=== PATIENT | male | born 1980 | race Caucasian/White ===

== ENCOUNTER 2016-03-13 13:21 | Emergency (ER) | payer MEDICAID ==
[~2016-03-13] VITALS: Ht 180.3 cm; Wt 70.3 kg
[2016-03-13 14:34] VITALS: BP 136/82
== END 2016-03-13 15:13 | disposition home or self-care (01) ==
LOC: ER 13:24
DX: H10.33 Unspecified acute conjunctivitis, bilateral (principal); F17.210 Nicotine dependence, cigarettes, uncomplicated; Z88.1 Allergy status to other antibiotic agents

== ENCOUNTER 2018-08-24 18:17 | Emergency (ER) | payer SELFPAY ==
[~2018-08-24] VITALS: Ht 180.3 cm; Wt 70.3 kg
[2018-08-24 18:28] VITALS: BP 117/76
== END 2018-08-24 20:01 | disposition left against medical advice (07) ==
LOC: ER 18:24
DX: M79.601 Pain in right arm (principal); Z53.21 Procedure and treatment not carried out due to patient leaving prior to being seen by health care provider

== ENCOUNTER 2022-05-17 12:59 | Emergency (ER) | payer MEDICAID ==
[~2022-05-17] VITALS: Ht 177.8 cm; Wt 72.7 kg
[2022-05-17 13:10] VITALS: BP 116/82
[2022-05-17] MEDS ORDERED: BUSP7.5T8 PO (14:20)
[2022-05-17] MEDS ORDERED: LIDO5PAD8 EX (14:20)
[2022-05-17] MEDS ORDERED: LACT10SO70 PO (14:20)
== END 2022-05-17 14:34 | disposition home or self-care (01) ==
LOC: ER 12:59
DX: F41.9 Anxiety disorder, unspecified (principal); F17.210 Nicotine dependence, cigarettes, uncomplicated; Z86.59 Personal history of other mental and behavioral disorders; Z76.0 Encounter for issue of repeat prescription; Z88.1 Allergy status to other antibiotic agents

== ENCOUNTER 2022-06-22 16:54 | Inpatient (IN) | payer MEDICAID ==
[~2022-06-22] VITALS: Ht 180.3 cm; Wt 70.4 kg
[~2022-06-22 16:54] MED LIST: BUSP7.5T8 PO; LACT10SO70 PO; LIDO5PAD8 EX
[2022-06-22 18:07] LABS: Basophils # (auto) 0 10 ^3/uL (0-0.2); Basophils % (auto) 0.3 % (0.0-2.0); Eosinophils # (auto) 0.2 10 ^3/uL (0-0.8); Eosinophils % (auto) 2.2 % (0.0-7.0); Hematocrit 45.9 % (41.0-53.0); Hemoglobin 14.8 g/dL (13.5-17.5); Lymphocytes # (auto) 2.8 10 ^3/uL (0.4-5.4); Lymphocytes % (auto) 33.9 % (10.0-50.0); Mean Corpuscular Hemoglobin 28.5 pg (28.0-32.0); Mean Corpuscular Hgb Conc. 32.3 g/dL (32.0-36.0); Monocytes % (auto) 12.4 % (0.0-12.0); Neutrophils # (auto) 4.3 10 ^3/uL (1.6-8.6); Neutrophils % (auto) 51.2 % (37.0-80.0); Nucleated Red Blood Cells % 0.1 %; Red Blood Cells 5.21 10^6/uL (4.5-5.90); Red Cell Distribution Width 14.3 % (11.8-14.3); White Blood Cell 8.3 10^3/uL (4.4-10.8)
[2022-06-22 18:27] LABS: Albumin 4.1 g/dL (3.4-5.0); Potassium 4.6 mmol/L (3.5-5.1)
[2022-06-22 18:30] LABS: BUN/Creatinine Ratio 17.4 (10.0-20.0); Bilirubin, Total 0.2 mg/dL (0.2-1.0); Total Protein 8.6 g/dL (6.4-8.2)
[2022-06-22] MEDS ORDERED: ACETAMINOPHEN 325 MG TAB PO PRN (21:30)
[2022-06-22] MEDS ORDERED: DOCUSATE SOD 100 MG CAP PO PRN (21:30)
[2022-06-22] MEDS ORDERED: HYDROcodone-ACET 5/325MG TAB PO PRN (21:30)
[2022-06-22] MEDS ORDERED: SODIUM CHLORIDE 0.9% 1,000 ML IV SCH (21:30)
[2022-06-22] MEDS ORDERED: ONDANSETRON HCL 4 MG/2 ML VIAL IV PRN (21:30)
[2022-06-22] MEDS ORDERED: ATORVASTATIN 20 MG TAB PO SCH (22:00)
[2022-06-23] MEDS ORDERED: NITROGLYCERIN 0.4 MG SL TAB SL PRN
[2022-06-23] MEDS ORDERED: MORPHINE SULFATE INJ 2 MG/ml SYRG IV PRN
[2022-06-23 01:00] VITALS: BP 104/63
[2022-06-23 06:37] LABS: Basophils # (auto) 0 10 ^3/uL (0-0.2); Basophils % (auto) 0.4 % (0.0-2.0); Eosinophils # (auto) 0.2 10 ^3/uL (0-0.8); Eosinophils % (auto) 3.1 % (0.0-7.0); Hematocrit 44.7 % (41.0-53.0); Hemoglobin 15.3 g/dL (13.5-17.5); Lymphocytes # (auto) 2.8 10 ^3/uL (0.4-5.4); Lymphocytes % (auto) 36.8 % (10.0-50.0); Mean Corpuscular Hemoglobin 29.7 pg (28.0-32.0); Mean Corpuscular Hgb Conc. 34.1 g/dL (32.0-36.0); Mean Corpuscular Volume 87.1 fL (80.0-100.0); Monocytes # (auto) 0.9 10 ^3/uL (0-1.3); Monocytes % (auto) 11.1 % (0.0-12.0); Neutrophils # (auto) 3.7 10 ^3/uL (1.6-8.6); Neutrophils % (auto) 48.6 % (37.0-80.0); Nucleated Red Blood Cells % 0.2 %; Red Blood Cells 5.14 10^6/uL (4.5-5.90); Red Cell Distribution Width 13.8 % (11.8-14.3); White Blood Cell 7.7 10^3/uL (4.4-10.8)
[2022-06-23 06:57] LABS: Potassium 3.7 mmol/L (3.5-5.1)
[2022-06-23 07:08] LABS: Albumin 3.8 g/dL (3.4-5.0); BUN/Creatinine Ratio 15.3 (10.0-20.0); Bilirubin, Total 0.3 mg/dL (0.2-1.0); Calcium 9.2 mg/dL (8.5-10.1)
[2022-06-23] MEDS ORDERED: ASPirin 81 mg TAB PO SCH (10:00)
== END 2022-06-23 06:55 | disposition left against medical advice (07) | DRG 82 ==
LOC: ER 16:54 → TELE 23:48
PROVIDERS: ADMIT Nurse Practitioner Family; ATTEND Nurse Practitioner Family
DX: H53.2 Diplopia (principal); R47.01 Aphasia; F41.9 Anxiety disorder, unspecified; Z53.29 Procedure and treatment not carried out because of patient's decision for other reasons; F17.210 Nicotine dependence, cigarettes, uncomplicated; R26.81 Unsteadiness on feet; J45.909 Unspecified asthma, uncomplicated; Z87.820 Personal history of traumatic brain injury; Z88.1 Allergy status to other antibiotic agents
CPT/HCPCS: 36415; 70450; 71045; 80053; 84484; 85025; G0378

== ENCOUNTER → 2023-11-11 | Day surgery (SDC) | payer MEDICAID ==
[2023-11-07 12:53] LABS: Urine Bacteria None Seen /hpf (None Seen)
[2023-11-07 13:07] LABS: Basophils # (auto) 0 10 ^3/uL (0-0.2); Basophils % (auto) 0.2 % (0.0-2.0); Eosinophils # (auto) 0.1 10 ^3/uL (0-0.8); Eosinophils % (auto) 1.3 % (0.0-7.0); Hematocrit 46.1 % (41.0-53.0); Hemoglobin 15.8 g/dL (13.5-17.5); Lymphocytes # (auto) 3.5 10 ^3/uL (0.4-5.4); Lymphocytes % (auto) 40.1 % (10.0-50.0); Mean Corpuscular Hemoglobin 31.9 pg (28.0-32.0); Mean Corpuscular Hgb Conc. 34.3 g/dL (32.0-36.0); Monocytes # (auto) 0.7 10 ^3/uL (0-1.3); Neutrophils # (auto) 4.3 10 ^3/uL (1.6-8.6); Neutrophils % (auto) 50.4 % (37.0-80.0); Platelet Count (auto) 182 10^3/uL (140-450); Red Blood Cells 4.95 10^6/uL (4.5-5.90); White Blood Cell 8.6 10^3/uL (4.4-10.8)
[2023-11-07 13:22] LABS: INR 1.04 (0.9-1.15); Partial Thromboplastin Time 28.2 SEC (24.5-34.5)
[2023-11-07 13:25] LABS: Urine Blood Negative /uL (Negative); Urine Clarity Clear (Clear); Urine Color Light-Yellow (Yellow); Urine Protein, UAD Negative (Negative); Urine Specific Gravity 1.008 (1.001-1.035); Urine Urobilinogen Normal (Negative); Urine WBC 6 /hpf (0 - 3)
[2023-11-07 13:43] LABS: Alanine Aminotransferase 46 U/L (7-40); Albumin 4.7 g/dL (3.2-4.8); Alkaline Phosphatase 93 U/L (46-116); Anion Gap 5 (5-15); Aspartate Aminotransferase 16 U/L (13-40); BUN/Creatinine Ratio 6.6 (10.0-20.0); Bilirubin, Total 0.2 mg/dL (0.2-1.0); Blood Urea Nitrogen 6 mg/dL (9-23); Calcium 10.1 mg/dL (8.7-10.4); Carbon Dioxide 30 mmol/L (20-31); Chloride 106 mmol/L (98-107); Glucose 93 mg/dL (74-106); Potassium 4.2 mmol/L (3.5-5.1); Sodium 141 mmol/L (136-145); Total Protein 7.8 g/dL (5.7-8.2)
[~2023-11-11] VITALS: Ht 180.3 cm; Wt 70.8 kg
[~2023-11-11] MED LIST changes: +AMAN100T PO; +DIVA1TAB59 PO; +DexAMETHasone SOD PHOS 10MG/1ML VIAL INJ ONE; +GABA-1250 PO; +GLYCOPYRROLATE 0.2 MG/ML 1ML VIAL ONE; +HYDR-3682 PO; +HYDROmorphone HCL 2 MG/ML VL/or syr IV PRN; +KETOROLAC TROMETH 30 MG/ML 1ML VIAL ONE; -LACT10SO70 PO; -LIDO5PAD8 EX; +LIDOCAINE 2% (LOCAL ANESTH.) PF 5ml SDV ONE; +MIDAZOLAM HCL 2MG/2ML 2ml VIAL (1mg/ml) ONE; +ONDANSETRON HCL 4 MG/2 ML VIAL ONE; +OXCA600T3 PO; +OXY5T PO; +PRAZ1CAP2 PO; +PROPOFOL 10 MG/ML 20 ML IV ONE; +TRAZ-228 PO; +fentaNYL CITRATE 100 MCG/2 ML VL ONE; +levoFLOXacin 500MG 100 ML IV ONE
[2023-11-11 11:32] VITALS: PULSE 75; RESP 8; TEMP 98.2; O2SAT 96
[2023-11-11 12:17] VITALS: BP 104/59; PULSE 82; RESP 11; O2SAT 98
== END | disposition home or self-care (01) ==
LOC: SUR 06:59
PROVIDERS: ATTEND Urology
DX: N20.0 Calculus of kidney (principal); R36.1 Hematospermia; R31.9 Hematuria, unspecified; F17.210 Nicotine dependence, cigarettes, uncomplicated; Z88.1 Allergy status to other antibiotic agents; Z98.890 Other specified postprocedural states
CPT/HCPCS: 36415; 52000; 80053; 81001; 85025; 85610; 85730; 87086; C1769; J1100; J1885; J1956; J2003; J2250; J2405; J2704; J3010; J7030